=== PATIENT | male | born 2000 | race Two or more races ===

== ENCOUNTER 2018-02-06 02:58 | Emergency (ER) | payer SELFPAY ==
[~2018-02-06] VITALS: Ht 175.3 cm; Wt 75.0 kg
[~2018-02-06 02:58] MED LIST: HYDR-3240 PO; PROM25AM6 PO
[2018-02-06] MEDS ORDERED: SODIUM CHLORIDE 0.9% 1,000ML IVBOLUS ONE (03:00)
[2018-02-06] MEDS ORDERED: SODIUM CHLORIDE FLUSH 10ML SYR IVF ONE (03:00)
[2018-02-06 03:29] VITALS: BP 123/72
== END 2018-02-06 03:31 | disposition short-term general hospital (02) ==
LOC: ED 03:11
DX: S71.131A Puncture wound without foreign body, right thigh, initial encounter (principal); S71.031A Puncture wound without foreign body, right hip, initial encounter; W34.00XA Accidental discharge from unspecified firearms or gun, initial encounter; Y93.89 Activity, other specified; Y99.8 Other external cause status; Y92.410 Unspecified street and highway as the place of occurrence of the external cause
CPT/HCPCS: 99285; J7030